=== PATIENT | male | born 1985 | race Caucasian/White ===

== ENCOUNTER 2020-04-21 00:57 | Emergency (ER) | payer MEDICAID ==
[~2020-04-21] VITALS: Ht 165.1 cm; Wt 77.1 kg
[2020-04-21 01:16] VITALS: BP_SYST 155
[2020-04-21] MEDS ORDERED: DIPH-TET-PERTUS Vaccine 0.5 ML VIAL (ADACEL) I.M. ONE (02:45)
[2020-04-21] MEDS ORDERED: LIDOCAINE 1% 10 MG/ML, 20 ML MDV INJ ONE (02:45)
[2020-04-21] MEDS ORDERED: BACITRACIN 1 GM OINT TP ONE (02:45)
[2020-04-21] MEDS ORDERED: LIDOCAINE 4% TOPICAL 50 ML BOTTLE MM ONE ×2 (02:45→02:58)
[2020-04-21 03:40] VITALS: BP_SYST 155
[2020-04-21] MEDS ORDERED: AMOXICILLIN/CLAVULANATE POTASSIUM 500 MG TABLET PO ONE (03:45)
== END 2020-04-21 03:40 | disposition home or self-care (01) ==
LOC: SED 00:57
DX: S01.511A Laceration without foreign body of lip, initial encounter (principal); S01.81XA Laceration without foreign body of other part of head, initial encounter; W54.0XXA Bitten by dog, initial encounter; Y93.89 Activity, other specified; Y92.89 Other specified places as the place of occurrence of the external cause; Y99.8 Other external cause status
CPT/HCPCS: 12013; 90471; 90715; 99283; J2001

== ENCOUNTER 2020-08-27 09:57 | Emergency (ER) | payer MEDICAID ==
[~2020-08-27] VITALS: Ht 180.3 cm; Wt 90.7 kg
[2020-08-27 09:58] VITALS: BP_SYST 143
--- NOTE | 2020-08-27 10:00 | NUR ---
Patient to ER bed 1 to gown for evaluation. Side rails up.
--- NOTE | 2020-08-27 10:05 | NUR ---
Pt came to ER for low abd pain, nausea, vomiting. Pt in [facility] at this time, on monitor, awaiting MD.
--- NOTE | 2020-08-27 10:10 | NUR ---
AFSHIN Messer at bedside examining patient.
[2020-08-27] MEDS ORDERED: METOCLOPRAMIDE HCL 10 MG/2 ML VIAL IVP ONE (10:30)
[2020-08-27] MEDS ORDERED: MORPHINE 4 MG/ML INJ. SYRINGE IVP ONE (10:45)
[2020-08-27 10:51] LABS: BASOPHILS # (AUTO) 0.1 K/uL (0.0-0.2); BASOPHILS % (AUTO) 0.3 % (0.0-2.0); EOSINOPHILS # (AUTO) 0.1 K/uL (0.0-0.4); EOSINOPHILS % (AUTO) 0.5 % (0.0-4.0); HEMATOCRIT 47.1 % (36-54); HEMOGLOBIN 15.3 g/dL (14.0-18.0); LYMPHOCYTES # (AUTO) 2.9 K/uL (1.0-5.5); LYMPHOCYTES % (AUTO) 16.8 % (20.5-51.5); MEAN CORPUSCULAR HEMOGLOBIN 29 pg (27-31); MEAN CORPUSCULAR HGB CONC 33 % (32-36); MEAN CORPUSCULAR VOLUME 87 fL (79.0-98.0); MONOCYTES # (AUTO) 0.9 K/uL (0.0-1.0); NEUTROPHILS # (AUTO) 13.4 K/uL (1.8-7.7); NEUTROPHILS % (AUTO) 77.4 % (40.0-70.0); PLATELET COUNT (AUTO) 237 K/uL (130-430); RED BLOOD CELL COUNT(AUTO) 5.39 MIL/uL (4.2-6.2); RED CELL DISTRIBUTION WIDTH 13.3 % (9.0-15.0); WHITE BLOOD COUNT (AUTO) 17.4 K/uL (4.8-10.8)
[2020-08-27 10:58] LABS: CALCIUM 8.7 mg/dL (8.4-11.0); CREATININE 1.04 mg/dL (0.55-1.30); POTASSIUM 3.6 mmol/L (3.5-5.1)
[2020-08-27] MEDS ORDERED: NACL 0.9% 1,000 ML IV ONE (11:00)
[2020-08-27 11:10] LABS: ALBUMIN 4.2 g/dL (3.4-4.8); TOTAL BILIRUBIN 0.6 mg/dL (0.0-1.0)
[2020-08-27] MEDS ORDERED: ONDANSETRON HCL 4 MG/2 ML VIAL IVP ONE (11:30)
[2020-08-27] MEDS ORDERED: ONDANSETRON HCL 4 MG/2 ML VIAL ONE (11:41)
[2020-08-27] MEDS ORDERED: HALOPERIDOL LACTATE 5 MG/ML VIAL IVP ONE (12:45)
[2020-08-27] MEDS ORDERED: HALOPERIDOL LACTATE 5 MG/ML VIAL ONE (13:32)
[2020-08-27] MEDS ORDERED: MAG-AL HYDROX/SIMETH 30 ML UDC PO ONE (13:45)
[2020-08-27 14:02] VITALS: BP_SYST 131
--- NOTE | 2020-08-27 14:03 | NUR ---
Patient given written and verbal discharge instructions and verbalizes understanding. ER MD discussed with patient the results and treatment provided. Patient in stable condition. ID arm band removed. Rx of FLAGYL, CIPRO, ZOFRAN given. Patient educated on pain management and to follow up with PMD. Pain Scale 0/10. Opportunity for questions provided and answered. Medication side effect fact sheet provided.
== END 2020-08-27 14:02 | disposition home or self-care (01) ==
LOC: SED 09:57
DX: K52.9 Noninfective gastroenteritis and colitis, unspecified (principal)
CPT/HCPCS: 36415; 74177; 80053; 83690; 85025; 93005; 96361; 96374; 96375; 99285; J1630; J2270; J2405; J2765; J7030; Q9967; 76376

== ENCOUNTER 2020-08-29 07:59 | Emergency (ER) | payer MEDICAID ==
[~2020-08-29] VITALS: Ht 180.3 cm; Wt 86.2 kg
[2020-08-29 08:09] VITALS: BP_SYST 141
--- NOTE | 2020-08-29 08:13 | NUR ---
Patient triaged and placed in waiting room. VSS and patient appears in no acute distress at this time. Awaiting available bed, and MD notified of need for MSE.
--- NOTE | 2020-08-29 08:30 | NUR ---
Patient to [facility] for evaluation. Side rails up. Report given to RADHA Mcbride.
[2020-08-29 08:31] VITALS: BP_SYST 141
--- NOTE | 2020-08-29 08:31 | NUR ---
Patient presented to ER C/O medication RX. Patient ambulatory to ER A&Ox4, skin pink & warm, afebrile, denies pain, nausea, denies V/D. Patient states he was seen in [facility] ER several days ago for stomach flu, today requesting Rx refill for zofran.
--- NOTE | 2020-08-29 08:33 | NUR ---
ER Dr. Ortiz at bedside examining patient.
--- NOTE | 2020-08-29 08:45 | NUR ---
Patient given written and verbal discharge instructions and verbalizes understanding. ER MD discussed with patient the results and treatment provided. Patient in stable condition. ID arm band removed. Rx of Zofran given. Patient educated on pain management and to follow up with PMD. Pain Scale 0/10. Opportunity for questions provided and answered. Medication side effect fact sheet provided.
== END 2020-08-29 08:45 | disposition home or self-care (01) ==
LOC: SED 07:59
DX: R11.2 Nausea with vomiting, unspecified (principal)
CPT/HCPCS: 99283

== ENCOUNTER 2020-11-16 02:42 | Emergency (ER) | payer OTHER, MEDICAID ==
[~2020-11-16] VITALS: Ht 177.8 cm; Wt 90.7 kg
[2020-11-16 03:01] VITALS: BP_SYST 140
[2020-11-16] MEDS ORDERED: KETOROLAC TROMETHAMINE 60 MG/2 ML VIAL IM ONE (03:15)
[2020-11-16] MEDS ORDERED: DIPH-TET-PERTUS Vaccine 0.5 ML VIAL (ADACEL) I.M. ONE (03:15)
[2020-11-16] MEDS ORDERED: MORPHINE 4 MG/ML INJ. SYRINGE IM ONE (03:15)
[2020-11-16] MEDS ORDERED: MORPHINE 4 MG/ML INJ. SYRINGE ONE (03:30)
[2020-11-16] MEDS ORDERED: KETAMINE 30 MG/3 ML SYRINGE ONE (05:09)
[2020-11-16] MEDS ORDERED: KETAMINE 30 MG/3 ML SYRINGE IVP ONE (05:15)
[2020-11-16 06:15] VITALS: BP_SYST 157
== END 2020-11-16 06:15 | disposition home or self-care (01) ==
LOC: SED 02:42
DX: S82.442A Displaced spiral fracture of shaft of left fibula, initial encounter for closed fracture (principal); S82.242A Displaced spiral fracture of shaft of left tibia, initial encounter for closed fracture; V89.9XXA Person injured in unspecified vehicle accident, initial encounter; Y93.89 Activity, other specified; Y92.413 State road as the place of occurrence of the external cause; Y99.8 Other external cause status
CPT/HCPCS: 29515; 70450; 73610; 73630; 76376; 90471; 90715; 96372; 96374; 99285; J1885; J2270

== ENCOUNTER 2023-04-23 00:39 | Emergency (ER) | payer MEDICAID ==
[~2023-04-23] VITALS: Ht 177.8 cm; Wt 81.6 kg
[2023-04-23 00:51] VITALS: BP_SYST 138; PULSE 74; RESP 19; TEMP 98.1; O2SAT 95
[2023-04-23] MEDS ORDERED: SULF15DR6 RIGHT EYE (01:48)
[2023-04-23 01:56] VITALS: BP_SYST 132; PULSE 75; RESP 18; TEMP 98.1; O2SAT 96
== END 2023-04-23 04:37 | disposition home or self-care (01) ==
LOC: SED 00:39
DX: H10.89 Other conjunctivitis (principal); H57.11 Ocular pain, right eye; Z79.899 Other long term (current) drug therapy
CPT/HCPCS: 99283